=== PATIENT | male | born 1945 | race Caucasian/White ===

== ENCOUNTER 2017-08-29 13:14 | Emergency (ER) | payer MEDICARE ==
[2017-08-29 13:30] VITALS: BP 148/70; PULSE 98; RESP 18; TEMP 98.2
--- NOTE | 2017-08-29 14:27 | ED ---
General Adult HPI - General Chief complaint: Wound/Laceration Stated complaint: left thumb lac Time Seen by Provider: 08/29/17 13:43 Source: patient, RN notes reviewed Mode of arrival: ambulatory Limitations: no limitations - History of Present Illness Initial comments: 72-year-old male presents to the emergency department for a chief complaint of laceration to the left thumb about 24 hours ago. Patient states he was using a table saw when he cut his thumb. Patient states he did not have a car to come to the emergency department yesterday. Patient denies any other injuries from this incident. Patient states he can move his thumb without difficulty. He states he cleaned it out well yesterday with peroxide. Patient has no other complaints at this time including shortness of breath, chest pain, abdominal pain, nausea or vomiting, headache, or visual changes. - Related Data Previous Rx's Medication Instructions Recorded Cephalexin [Keflex] 500 mg PO Q12HR #20 cap 08/29/17 Allergies Allergy/AdvReac Type Severity Reaction Status Date / Time No Known Allergies Allergy Verified 08/29/17 13:29 Review of Systems ROS Statement: Those systems with pertinent positive or pertinent negative responses have been documented in the HPI. ROS Other: All systems not noted in ROS Statement are negative. Past Medical History Past Medical History: No Reported History History of Any Multi-Drug Resistant Organisms: None Reported Past Surgical History: No Surgical Hx Reported Past Psychological History: No Psychological Hx Reported Smoking Status: Current every day smoker Past Alcohol Use History: None Reported Past Drug Use History: None Reported General Exam General appearance: alert, in no apparent distress Head exam: Present: atraumatic, normocephalic, normal inspection Respiratory exam: Present: normal lung sounds bilaterally. Absent: respiratory distress, wheezes, rales, rhonchi, stridor Cardiovascular Exam: Present: regular rate, normal rhythm, normal heart sounds. Absent: systolic murmur, diastolic murmur, rubs, gallop, clicks Extremities exam: Present: full ROM (Full range of motion of the left thumb in the rest of the left hand.), normal capillary refill (Capillary refill less than 2 seconds and radial pulse 2+.), other (1 cm laceration of the distal phalanx of the left thumb. Wound is currently closed. There is no open skin noted.). Absent: tenderness (No tenderness except on the laceration in the left thumb or left hand including the scaphoid.) Course Vital Signs 08/29/17 13:27 Temperature 98.2 F Pulse Rate 98 Respiratory 18 Rate Blood Pressure 148/70 O2 Sat by Pulse 98 Oximetry Medical Decision Making - Medical Decision Making 72-year-old male sent to the emergency determine for chief complaint of laceration by table saw 24 hours ago. Tetanus is up-to-date. Patient clean the wound out well. He could not come to the ER yesterday. On exam there is a laceration of the distal thumb. It is currently closed and there is no open wound that needs to be sutured. X-ray of the left thumb shows no acute fractures or dislocations. Patient was given a prescription of Keflex alex [place] and patient does not have prescription coverage. It was also wrapped with a Band-Aid and bacitracin was applied. Patient will follow up with primary care in 1-2 days. He was educated on any signs of infection he will return if those occur or if any other worsening symptoms occur. Disposition Clinical Impression: Laceration Disposition: HOME SELF-CARE Condition: Good Instructions: Laceration (ED) Additional Instructions: Please take antibiotic as directed. Please keep the wound clean. Please monitor for any signs of infection such as spreading redness, streaking redness , or drainage from the area. Prescriptions: Cephalexin [Keflex] 500 mg PO Q12HR #20 cap Is patient prescribed a controlled substance at d/c from ED?: No Referrals: Denise Ross MD [Primary Care Provider] - 1-2 days Time of Disposition: 15:05
--- NOTE | 2017-08-29 14:27 | XR ---
EXAMINATION TYPE: XR finger LT DATE OF EXAM: 08/29/2017 COMPARISON: NONE HISTORY: Pain, laceration TECHNIQUE: Three-view left thumb FINDINGS: Some degenerative joint changes at the first metacarpal phalangeal junction. No radiopaque foreign body is evident. No osseous abnormality is otherwise evident. IMPRESSION: 1. No acute osseous abnormality. 2. No radiopaque foreign body.
== END 2017-08-29 15:10 | disposition home or self-care (01) ==
LOC: EC 13:14
DX: S61.012A Laceration without foreign body of left thumb without damage to nail, initial encounter (principal); F17.200 Nicotine dependence, unspecified, uncomplicated; W31.2XXA Contact with powered woodworking and forming machines, initial encounter
CPT/HCPCS: 99283

== ENCOUNTER → 2021-09-07 | Outpatient (CLI) | payer MEDICARE ==
--- NOTE | 2021-09-07 11:16 | CT ---
EXAMINATION TYPE: CT brain wo con DATE OF EXAM: 09/07/2021 HISTORY: Possible tumor at base of skull. Abnormal outside imaging. CT DLP: 1126.5 mGycm. Automated Exposure Control for Dose Reduction was Utilized. TECHNIQUE: CT scan of the head is performed without contrast. COMPARISON: Prior MRI brain February 25, 2011. FINDINGS: There is no acute intracranial hemorrhage or midline shift identified. There is mild to m oderate diffuse ventricular and sulcal prominence consistent with diffuse age-related cerebral atroph y. There is moderate is low-attenuation in the periventricular white matter consistent with chronic small vessel ischemic change. Old infarct high right frontal lobe near axial image 39 is present. Josué e opacification of the posterior inferior mastoid air cells bilaterally. The globes are intact and th e visualized sinuses are clear. IMPRESSION: No acute intracranial hemorrhage or midline shift. 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 Some increased fluid signal bilateral mastoid air cells raises co ncern for mastoiditis, correlate clinically.
--- NOTE | 2021-09-07 11:21 | CT ---
EXAMINATION TYPE: CT chest wo con DATE OF EXAM: 09/07/2021 COMPARISON: Outside chest x-ray November 19, 2011 HISTORY: Possible malignancy. Abnormal outside imaging or labs? CT DLP: 185.8 mGycm. Automated Exposure Control for Dose Reduction was Utilized. TECHNIQUE: CT scan of the thorax is performed without IV contrast. FINDINGS: LUNGS: Moderate underlying emphysematous change is present. Odav-cs-qupouxos bibasilar linear scarrin g and/or atelectasis with areas of groundglass opacity are present in the posterior lower lobes. Ther e is focal nodular consolidation measuring 1.7 x 1.2 cm in the peripheral posterior inferior right up per lobe axial image 39. Few scattered small nodules are present. For reference there is 6 x 3 mm rig ht middle lobe nodule axial image 53. For reference there is 8 x 5 mm anterior-inferior right upper l obe nodule axial image 43. No pleural effusion or pneumothorax noted bilaterally. MEDIASTINUM: Lack of IV contrast is noted to limit evaluation for mediastinal and especially hilar a denopathy. There are no definitive greater than 1 cm mediastinal lymph nodes. No cardiomegaly or pe ricardial effusion is seen. Mild to moderate three-vessel coronary artery calcification. Prominent ri ght and left pulmonary arteries suggesting underlying pulmonary artery hypertension. Ascending aorta measures up to 3.5 cm in diameter. OTHER: A few scattered small hypodense lesions throughout the liver consistent with benign thin-dick d cysts. Hipy-lz-txombelg multilevel spurring in the thoracic spine. IMPRESSION: Moderate underlying emphysematous change. Mild to moderate lower lung fibrotic change. Fe w scattered small nodules. Cannot exclude larger nodule versus nodular consolidation in the periphera l posterior inferior right upper lobe. Consider short term CT and/or PET CT follow-up to further eval uate.
== END | disposition home or self-care (01) ==
LOC: RADCTMAIN 09:14
PROVIDERS: ATTEND Psychiatry & Neurology Neurology
DX: C79.9 Secondary malignant neoplasm of unspecified site (principal); F03.90 Unspecified dementia, unspecified severity, without behavioral disturbance, psychotic disturbance, mood disturbance, and anxiety; N28.9 Disorder of kidney and ureter, unspecified; R91.1 Solitary pulmonary nodule
CPT/HCPCS: 70450; 71250; 82565; 84520

== ENCOUNTER → 2021-09-28 | Outpatient (CLI) | payer MEDICARE ==
--- NOTE | 2021-10-09 19:07 | PE ---
EXAMINATION TYPE: PET CT fusion skull to thigh DATE OF EXAM: 09/28/2021 CLINICAL HISTORY: 76-year-old male initial staging for unknown primary. TECHNIQUE: Following the intravenous administration of 11.33 mCi of F-18 FDG, whole body images are performed from the skull base to the midthigh. Images are reviewed on the computer in the coronal, axial, and sagittal planes. Reconstructed rotating images are created on independent workstation and reviewed on the computer. A localization and attenuation correction CT is performed in conjunction with the PET scan. Glucose level: 112 mg/dL Injection site: Right AC COMPARISON: CT and MRI brain 09/07/2021 and FINDINGS: PET: There is mild uptake associated with left sphenoid sinus mucosal thickening and inflammatory changes, max SUV 2.6. A small air-fluid level remains having shown some improvement compared to 09/24/2021. No focal intense abnormal activity. Mild physiologic FDG uptake in the posterior nasopharynx, lingual tonsils and larynx. Again, no focal discrete abnormal tracer activity. Mild, borderline moderate focal activity associated with bilateral hilar lymph nodes which are probab ly borderline in size. Unable to obtain accurate measurements due to lack of IV contrast. Max SUV 3.6 . A 9 mm low right paratracheal lymph node, max SUV 3.2. Subcarinal lymph node measures 1.4 cm, max SUV 3.3. 1.3 cm AP window lymph node, max SUV 3.2. There are patchy areas of bibasilar opacity, right middle lobe and inferior lingula on axial image 15 5 and patchy changes throughout the basilar lower lobes. Inferior lingular density has a 1 cm nodular configuration, max SUV 1.6. Average liver SUV 2.2. A few small hepatic hypodensities measuring up to 1 cm show no discrete FDG uptake, too small for acc urate CT characterization, likely cysts. Larger lobulated hypodense lesion posterior left hepatic dom e measuring 2.9 cm suggestive of a cyst. 1.3 cm cortical hypodensity medial upper pole left kidney shows no FDG uptake, likely cyst. Focal moderate uptake along the lower descending colon without discrete CT abnormality, max SUV 4.9. This can be correlated with routine screening colonoscopy. Suspected physiologic uptake. More linear uptake along the distal sigmoid and rectum is suggestive of physiologic uptake. Otherwise, physiologic FDG uptake within the abdomen and pelvis. ATTENUATION CORRECTION CT: No cervical lymphadenopathy seen. The orotracheal column is clear. Heart normal size without pericardial effusion. Mild aortic valvular calcifications. Scattered mild c oronary artery calcifications. Mildly ectatic ascending aorta at 3.5 cm and upper descending thoracic aorta 3.0 cm. Mild atherosclerotic arch calcifications within the short vessel branching anatomy. Mi ldly enlarged caliber to the main right and left pulmonary arteries up to 2.8 and 2.7 cm on either si de suggesting underlying pulmonary arterial hypertension. Background of moderate to advanced upper l evelio emphysema. Diffuse bronchial wall thickening. Incidental 3.8 cm infrarenal AAA. Mild aneurysm right common iliac artery at 2.2 cm. Mild ectasia lef t common iliac artery at 1.7 cm. Focal moderate atherosclerotic narrowing at the distal left common i liac artery. No dilated small bowel, free fluid, or free air. No mesenteric or retroperitoneal lympha denopathy. Mild stool burden. No pericolonic inflammatory change. Bladder prominently urine distended. Prostate gland measures 5.0 cm wide. No abnormal fluid collectio n in the pelvis or pelvic lymphadenopathy. Bones: Degenerative change right greater than left SI joints. Spondylotic change seen throughout the mid to lower thoracic and lumbar spine. IMPRESSION: 1. Mild uptake involving the left sphenoid sinus where there is inflammatory mucosal thickening. A sm all air-fluid level remains here, having shown some improvement from 09/24/2021. Correlate for residua l acute on chronic sinusitis. 2. Variable mild-moderate uptake within nonenlarged and borderline sized mediastinal and hilar lymph nodes. Suspect reactive/post inflammatory uptake. Infectious etiologies and inflammatory processes alvarado ch as sarcoidosis are also in the differential. Recommend follow-up contrast enhanced CT chest in 3 m [facility] to ensure stability/resolution. 3. Patchy bibasilar airspace disease. At the inferior lingula, this shows a 1 cm nodular configuratio n with mild uptake, max SUV 1.6. Inflammatory etiology such as infectious or aspiration pneumonitis f avored. Follow-up contrast enhanced CT chest in 3 months to reassess. 4. Some focal uptake along the lower descending colon without discrete CT abnormality, likely physiol ogic uptake. This should be correlated with routine screening colonoscopy findings. 5. INCIDENTAL: COPD with pulmonary arterial hypertension, AAA measuring 3.8 cm, and aneurysmal/ectati c common iliac arteries measuring up to 2.2 cm. Prostatomegaly at 5.0 cm wide.
== END | disposition home or self-care (01) ==
LOC: RADXRMAIN 11:45
PROVIDERS: ATTEND Psychiatry & Neurology Neurology
DX: R93.0 Abnormal findings on diagnostic imaging of skull and head, not elsewhere classified (principal)
CPT/HCPCS: 78815; A9552